=== PATIENT | male | born 1950 | race African-American/Black ===

== ENCOUNTER 2024-05-15 12:36 | Inpatient (IN) | payer BC, MEDICAID, MEDICARE ==
[~2024-05-15] VITALS: Ht 172.7 cm; Wt 98.0 kg
[2024-05-15 13:36] LABS: BASOPHILS % 0.3 % (0.0-2.0); EOSINOPHILS % 0.3 % (0.0-5.0); HEMATOCRIT. 47.5 % (42.0-52.0); LYMPHOCYTES % 14.6 % (20.0-50.0); MEAN CORPUSCULAR HEMOGLOBIN 28.5 pg (28.0-32.0); MEAN CORPUSCULAR HGB CONC 31.6 g/dL (31.0-37.0); MEAN CORPUSCULAR VOLUME 90.3 fL (80.0-94.0); MEAN PLATELET VOLUME 11.4 fl (7.4-10.4); MONOCYTES % 10.5 % (2.0-8.0); NEUTROPHILS % 74.3 % (40.0-76.0); PLATELET 116 x1000/uL (130-400); RED BLOOD CELL COUNT 5.26 mill/uL (4.7-6.1); RED CELL DISTRIBUTION WIDTH 14.7 % (11.6-14.6)
[2024-05-15 13:40] LABS: CHLORIDE 106 mEq/L (98-107); POTASSIUM 3.9 mEq/L (3.5-5.1); SODIUM 134 mEq/L (136-145)
[2024-05-15 13:41] LABS: CALCIUM 9.3 mg/dL (8.7-10.4); CARBON DIOXIDE 19 mEq/L (21-32)
[2024-05-15 13:46] LABS: CREATININE 2.1 mg/dL (0.6-1.3); GLUCOSE 102 mg/dL (70-105); UREA NITROGEN BLOOD 14 mg/dL (9-23)
[2024-05-15 13:47] LABS: TROPONIN I HIGH SENSITIVITY 10 ng/L (3.0-53)
[2024-05-15 13:48] LABS: PHOSPHORUS 2.6 mg/dL (2.5-4.9)
[2024-05-15 15:43] LABS: PROTHROMBIN TIME 10.8 sec (9.6-11.0)
[2024-05-15] MEDS: SODIUM CHLORIDE 0.9% 1,000 ML IV ONE (23:37)
[2024-05-16 00:44] VITALS: BP 138/48; PULSE 87; RESP 20; TEMP 36.0844
[2024-05-16 00:49] VITALS: BP 138/48; PULSE 87; RESP 20; TEMP 36.05844; O2SAT 98
[2024-05-16] MEDS: DEXT 5%/0.9% NACL 1,000 ML IV SCH (02:34)
[2024-05-16] MEDS: HYDROCODONE/ACETAMINOPHEN 5/325MG TABLET PO PRN (02:35)
[2024-05-16 04:00] VITALS: BP 135/81; PULSE 76; RESP 20; TEMP 36.114; O2SAT 99
[2024-05-16] MEDS: PANTOPRAZOLE 40MG DR TABLET PO SCH (07:54)
[2024-05-16 08:00] VITALS: BP 145/76; PULSE 70; RESP 19; TEMP 36.44736; O2SAT 98
[2024-05-16] MEDS: ASPIRIN 81MG EC TABLET PO SCH (08:33)
[2024-05-16] MEDS: ENOXAPARIN 30MG/0.3ML SYR SUBCUT SCH (08:33)
[2024-05-16 12:00] VITALS: BP 119/77; PULSE 72; RESP 19; TEMP 37.05852; O2SAT 98
[2024-05-16 13:44] LABS: CLARITY URINE CLOUDY (CLEAR); COLOR URINE DARK YELLOW (YELLOW); GLUCOSE URINE NEGATIVE (NEGATIVE); KETONES URINE 1+ (NEGATIVE); LEUKOCYTE ESTERASE URINE TRACE (NEGATIVE); NITRITE URINE NEGATIVE (NEGATIVE); OCCULT BLOOD URINE 3+ (NEGATIVE); PROTEIN URINE 2+ (NEGATIVE); SPECIFIC GRAVITY URINE 1.024 (1.005-1.030)
[2024-05-16 14:29] LABS: SQUAMOUS EPITHELIAL CELL URINE RARE /lpf (RARE/1+)
[2024-05-16 14:30] LABS: BACTERIA URINE 2+; RBC URINE TNTC /hpf (0-2)
[2024-05-16] MEDS ORDERED: NALOXONE HCL 0.4MG/ML VIAL IV PRN (15:15)
[2024-05-16 18:35] LABS: BASOPHILS % 0.6 % (0.0-2.0); EOSINOPHILS % 1.7 % (0.0-5.0); HEMOGLOBIN. 13.5 g/dL (14.0-18.0); LYMPHOCYTES % 29.4 % (20.0-50.0); MEAN CORPUSCULAR HEMOGLOBIN 29.3 pg (28.0-32.0); MEAN CORPUSCULAR HGB CONC 32.8 g/dL (31.0-37.0); MEAN CORPUSCULAR VOLUME 89.4 fL (80.0-94.0); MEAN PLATELET VOLUME 11.8 fl (7.4-10.4); MONOCYTES % 11.2 % (2.0-8.0); NEUTROPHILS % 57.1 % (40.0-76.0); PLATELET 124 x1000/uL (130-400); RED BLOOD CELL COUNT 4.59 mill/uL (4.7-6.1); RED CELL DISTRIBUTION WIDTH 14.7 % (11.6-14.6); WHITE BLOOD COUNT 4.7 x1000/uL (4.5-11.0)
[2024-05-16] MEDS: DEXAMETHASONE 4MG/ML 1ML VIAL IV SCH (18:50)
[2024-05-16] MEDS ORDERED: CEFTRIAXONE 1,000 MG in DEXTROSE 5% WATER 50 ML IV SCH (19:45)
[2024-05-16 20:00] VITALS: BP 154/81; PULSE 84; RESP 20; TEMP 36.61404; O2SAT 96
[2024-05-16 20:51] LABS: CHLORIDE 109 mEq/L (98-107); SODIUM 135 mEq/L (136-145)
[2024-05-16 20:52] LABS: CALCIUM 8.8 mg/dL (8.7-10.4); CARBON DIOXIDE 21 mEq/L (21-32)
[2024-05-16 20:57] LABS: GLUCOSE 114 mg/dL (70-105); UREA NITROGEN BLOOD 12 mg/dL (9-23)
[2024-05-16 21:06] LABS: CREATININE 1.4 mg/dL (0.6-1.3)
[2024-05-17] VITALS (41 sets, daily range): BP systolic 97–159; BP diastolic 57–102; PULSE 58–98; RESP 8–20; TEMP 34.4472–36.72516; O2SAT 93–100
[2024-05-17 09:19] LABS: BASOPHILS % 0.2 % (0.0-2.0); EOSINOPHILS % 0.1 % (0.0-5.0); HEMATOCRIT. 44.5 % (42.0-52.0); HEMOGLOBIN. 14.4 g/dL (14.0-18.0); LYMPHOCYTES % 11.9 % (20.0-50.0); MEAN CORPUSCULAR HEMOGLOBIN 28.9 pg (28.0-32.0); MEAN CORPUSCULAR HGB CONC 32.4 g/dL (31.0-37.0); MEAN CORPUSCULAR VOLUME 89.2 fL (80.0-94.0); MEAN PLATELET VOLUME 11.9 fl (7.4-10.4); MONOCYTES % 5.9 % (2.0-8.0); NEUTROPHILS % 81.9 % (40.0-76.0); PLATELET 142 x1000/uL (130-400); RED BLOOD CELL COUNT 4.98 mill/uL (4.7-6.1); RED CELL DISTRIBUTION WIDTH 14.4 % (11.6-14.6); WHITE BLOOD COUNT 6.9 x1000/uL (4.5-11.0)
[2024-05-17 09:38] LABS: CHLORIDE 109 mEq/L (98-107); POTASSIUM 4.6 mEq/L (3.5-5.1); SODIUM 137 mEq/L (136-145)
[2024-05-17 09:39] LABS: CALCIUM 9.2 mg/dL (8.7-10.4); CARBON DIOXIDE 21 mEq/L (21-32)
[2024-05-17 09:44] LABS: CREATININE 1.7 mg/dL (0.6-1.3); GLUCOSE 128 mg/dL (70-105); PROTEIN TOTAL 6.8 g/dL (6.0-8.3); UREA NITROGEN BLOOD 9 mg/dL (9-23)
[2024-05-17 09:46] LABS: ALANINE AMINOTRANSFERASE 28 IU/L (10-49); ALBUMIN 3.7 g/dL (3.2-4.8); ASPARTATE AMINOTRANSFERASE 27 IU/L (<34); BILIRUBIN DIRECT 0.2 mg/dL (<=3.0); BILIRUBIN TOTAL 0.4 mg/dL (0.1-1.0); CREATINE KINASE 64 IU/L (46-171); PHOSPHORUS 2.6 mg/dL (2.5-4.9)
[2024-05-17] MEDS ORDERED: ROCURONIUM BROMIDE 10MG/ML VIAL 5ML IV ONE (09:48)
[2024-05-17] MEDS ORDERED: FENTANYL CITRATE/PF 50MCG/ML 2ML VIAL ONE (09:48)
[2024-05-17] MEDS ORDERED: PROPOFOL 200MG/20ML VIAL IV ONE (09:49)
[2024-05-17] MEDS ORDERED: THROMBIN (BOVINE) 5000 UNITS/VIAL TOP ONE (09:51)
[2024-05-17] MEDS ORDERED: LIDOCAINE HCL/EPINEPHRINE 1%-EPI 1:100,000 20ML VIAL ONE (09:51)
[2024-05-17] MEDS ORDERED: GENTAMICIN SULF 40MG/ML 2ML VIAL ONE (09:51)
[2024-05-17] MEDS ORDERED: HYDROMORPHONE HCL/PF 1MG/ML INJ IV PRN (12:00)
[2024-05-17] MEDS ORDERED: ONDANSETRON HCL 4MG/2ML INJ IV PRN (12:00)
[2024-05-17] MEDS ORDERED: SUGAMMADEX SODIUM 200MG/2ML VIAL IV ONE (12:20)
[2024-05-17] MEDS: MORPHINE SULFATE 4 MG/ML INJ (FOR IV/IM USE) IV PRN (13:26)
[2024-05-17] MEDS: DEXT 5%/LACTATED RINGERS 1,000 ML IV SCH (13:26)
[2024-05-17] MEDS: NICARDIPINE 100 MG in SODIUM CHLORIDE 0.9% 60 ML IV PRN (13:37)
[2024-05-17] MEDS ORDERED: CEFAZOLIN SODIUM 1000MG/VIAL IV SCH (14:00)
[2024-05-17 14:10] LABS: CREATININE URINE RANDOM 40.1 mg/dL
[2024-05-17] MEDS: CLINDAMYCIN 600MG PREMIX 50 ML IV SCH (15:12)
[2024-05-18] VITALS (95 sets, daily range): BP systolic 106–155; BP diastolic 66–126; PULSE 67–98; RESP 9–29; TEMP 35.72508–36.72516; O2SAT 93–99
[2024-05-18 04:30] LABS: HEMATOCRIT. 38.6 % (42.0-52.0); MEAN CORPUSCULAR HEMOGLOBIN 29.7 pg (28.0-32.0); MEAN CORPUSCULAR HGB CONC 33.8 g/dL (31.0-37.0); MEAN PLATELET VOLUME 11.4 fl (7.4-10.4); PLATELET 132 x1000/uL (130-400); RED BLOOD CELL COUNT 4.38 mill/uL (4.7-6.1); RED CELL DISTRIBUTION WIDTH 14.6 % (11.6-14.6); WHITE BLOOD COUNT 10.9 x1000/uL (4.5-11.0)
[2024-05-18 04:31] LABS: CHLORIDE 110 mEq/L (98-107); POTASSIUM 4.5 mEq/L (3.5-5.1); SODIUM 138 mEq/L (136-145)
[2024-05-18 04:33] LABS: CALCIUM 8.5 mg/dL (8.7-10.4); CARBON DIOXIDE 21 mEq/L (21-32)
[2024-05-18 04:38] LABS: CREATININE 1.2 mg/dL (0.6-1.3); GLUCOSE 149 mg/dL (70-105)
[2024-05-18 04:39] LABS: ALANINE AMINOTRANSFERASE 26 IU/L (10-49); UREA NITROGEN BLOOD 10 mg/dL (9-23)
[2024-05-18 04:40] LABS: ALBUMIN 3.4 g/dL (3.2-4.8); ASPARTATE AMINOTRANSFERASE 31 IU/L (<34)
[2024-05-18 04:41] LABS: BILIRUBIN DIRECT 0.2 mg/dL (<=3.0); BILIRUBIN TOTAL 0.4 mg/dL (0.1-1.0); PHOSPHORUS 2.6 mg/dL (2.5-4.9)
[2024-05-18 05:25] LABS: DIFFERENTIAL COMMENT 1
[2024-05-18 16:02] LABS: PLATELET ESTIMATE NORMAL
[2024-05-19] VITALS (52 sets, daily range): BP systolic 110–153; BP diastolic 64–87; PULSE 64–84; RESP 9–31; TEMP 36.3918–36.50292; O2SAT 94–100
[2024-05-19 05:35] LABS: BASOPHILS % 0.2 % (0.0-2.0); EOSINOPHILS % 0.1 % (0.0-5.0); HEMOGLOBIN. 13.6 g/dL (14.0-18.0); LYMPHOCYTES % 9.4 % (20.0-50.0); MEAN CORPUSCULAR HEMOGLOBIN 29.2 pg (28.0-32.0); MEAN CORPUSCULAR HGB CONC 31.5 g/dL (31.0-37.0); MEAN CORPUSCULAR VOLUME 92.7 fL (80.0-94.0); MEAN PLATELET VOLUME 10.8 fl (7.4-10.4); MONOCYTES % 6.9 % (2.0-8.0); NEUTROPHILS % 83.4 % (40.0-76.0); PLATELET 71 x1000/uL (130-400); RED BLOOD CELL COUNT 4.64 mill/uL (4.7-6.1); RED CELL DISTRIBUTION WIDTH 15.4 % (11.6-14.6); WHITE BLOOD COUNT 10.3 x1000/uL (4.5-11.0)
[2024-05-19 05:44] LABS: CARBON DIOXIDE 24 mEq/L (21-32); CHLORIDE 107 mEq/L (98-107); POTASSIUM 4.8 mEq/L (3.5-5.1); SODIUM 136 mEq/L (136-145)
[2024-05-19 05:46] LABS: CALCIUM 8.3 mg/dL (8.7-10.4)
[2024-05-19 05:50] LABS: CREATININE 1.2 mg/dL (0.6-1.3); GLUCOSE 119 mg/dL (70-105)
[2024-05-19 05:51] LABS: UREA NITROGEN BLOOD 10 mg/dL (9-23)
[2024-05-19 05:53] LABS: PHOSPHORUS 2.6 mg/dL (2.5-4.9)
[2024-05-19] MEDS: MAGNESIUM 2 G PREMIX 50 ML IV NR (10:19)
[2024-05-20] VITALS (10 sets, daily range): BP systolic 124–175; BP diastolic 73–100; PULSE 74–100; RESP 16–20; TEMP 36.00288–37.00296; O2SAT 96–100
[2024-05-20] MEDS: IPRATROPIUM/ALBUTEROL 0.5-3(2.5)MG/3ML NEB HHN SCH
[2024-05-20 07:20] LABS: BASOPHILS % 0.2 % (0.0-2.0); EOSINOPHILS % 0.4 % (0.0-5.0); HEMATOCRIT. 40.5 % (42.0-52.0); HEMOGLOBIN. 13.1 g/dL (14.0-18.0); MEAN CORPUSCULAR HEMOGLOBIN 28.7 pg (28.0-32.0); MEAN CORPUSCULAR HGB CONC 32.4 g/dL (31.0-37.0); MEAN CORPUSCULAR VOLUME 88.6 fL (80.0-94.0); MEAN PLATELET VOLUME 11.1 fl (7.4-10.4); MONOCYTES % 6.7 % (2.0-8.0); NEUTROPHILS % 73.7 % (40.0-76.0); PLATELET 133 x1000/uL (130-400); RED BLOOD CELL COUNT 4.57 mill/uL (4.7-6.1); RED CELL DISTRIBUTION WIDTH 14.4 % (11.6-14.6); WHITE BLOOD COUNT 6.9 x1000/uL (4.5-11.0)
[2024-05-20 07:24] LABS: CHLORIDE 107 mEq/L (98-107); POTASSIUM 3.9 mEq/L (3.5-5.1); SODIUM 135 mEq/L (136-145)
[2024-05-20 07:25] LABS: CARBON DIOXIDE 23 mEq/L (21-32)
[2024-05-20 07:26] LABS: CALCIUM 8.4 mg/dL (8.7-10.4)
[2024-05-20 07:29] LABS: UREA NITROGEN BLOOD 13 mg/dL (9-23)
[2024-05-20 07:30] LABS: CREATININE 0.9 mg/dL (0.6-1.3); GLUCOSE 101 mg/dL (70-105)
[2024-05-20 07:32] LABS: ALANINE AMINOTRANSFERASE 32 IU/L (10-49); ALBUMIN 3.2 g/dL (3.2-4.8); ASPARTATE AMINOTRANSFERASE 28 IU/L (<34)
[2024-05-20 07:33] LABS: BILIRUBIN DIRECT 0.2 mg/dL (<=3.0); BILIRUBIN TOTAL 0.4 mg/dL (0.1-1.0); PHOSPHORUS 2.2 mg/dL (2.5-4.9)
[2024-05-20] MEDS: MAGNESIUM 2 G PREMIX 50 ML IV NR (10:15)
[2024-05-20] MEDS: SODIUM PHOSPHATE 15 MMOL in DEXT 5% WATER 245 ML IV NR (11:09)
[2024-05-20] MEDS: LOSARTAN 50 MG TABLET PO SCH (18:34)
[2024-05-20] MEDS: CLONIDINE 0.1MG TABLET PO PRN (18:35)
[2024-05-21] VITALS (10 sets, daily range): BP systolic 108–145; BP diastolic 60–88; PULSE 7–103; RESP 16–22; TEMP 36.3918–37.00296; O2SAT 94–99
[2024-05-21 10:19] LABS: BASOPHILS % 0.2 % (0.0-2.0); EOSINOPHILS % 0.6 % (0.0-5.0); HEMATOCRIT. 42.9 % (42.0-52.0); HEMOGLOBIN. 13.8 g/dL (14.0-18.0); LYMPHOCYTES % 14.6 % (20.0-50.0); MEAN CORPUSCULAR HEMOGLOBIN 28.8 pg (28.0-32.0); MEAN CORPUSCULAR HGB CONC 32.2 g/dL (31.0-37.0); MEAN CORPUSCULAR VOLUME 89.4 fL (80.0-94.0); MEAN PLATELET VOLUME 10.4 fl (7.4-10.4); MONOCYTES % 6.8 % (2.0-8.0); NEUTROPHILS % 77.8 % (40.0-76.0); PLATELET 130 x1000/uL (130-400); RED CELL DISTRIBUTION WIDTH 15.1 % (11.6-14.6); WHITE BLOOD COUNT 9.1 x1000/uL (4.5-11.0)
[2024-05-21 10:39] LABS: CARBON DIOXIDE 25 mEq/L (21-32); CHLORIDE 102 mEq/L (98-107); POTASSIUM 4.7 mEq/L (3.5-5.1); SODIUM 133 mEq/L (136-145)
[2024-05-21 10:40] LABS: CALCIUM 8.6 mg/dL (8.7-10.4)
[2024-05-21 10:45] LABS: CREATININE 1.2 mg/dL (0.6-1.3); GLUCOSE 155 mg/dL (70-105)
[2024-05-21 10:46] LABS: UREA NITROGEN BLOOD 14 mg/dL (9-23)
[2024-05-21 10:48] LABS: PHOSPHORUS 3.1 mg/dL (2.5-4.9)
[2024-05-22] VITALS (10 sets, daily range): BP systolic 93–157; BP diastolic 54–82; PULSE 64–106; RESP 18–22; TEMP 36.3918–38.22528; O2SAT 93–98
[2024-05-22 05:38] LABS: CARBON DIOXIDE 23 mEq/L (21-32); CHLORIDE 105 mEq/L (98-107); POTASSIUM 4.1 mEq/L (3.5-5.1); SODIUM 133 mEq/L (136-145)
[2024-05-22 05:39] LABS: CALCIUM 8.3 mg/dL (8.7-10.4)
[2024-05-22 05:41] LABS: BASOPHILS % 0.1 % (0.0-2.0); EOSINOPHILS % 0.4 % (0.0-5.0); HEMATOCRIT. 40.7 % (42.0-52.0); HEMOGLOBIN. 13.7 g/dL (14.0-18.0); MEAN CORPUSCULAR HEMOGLOBIN 29.9 pg (28.0-32.0); MEAN CORPUSCULAR HGB CONC 33.8 g/dL (31.0-37.0); MEAN CORPUSCULAR VOLUME 88.6 fL (80.0-94.0); MEAN PLATELET VOLUME 10.1 fl (7.4-10.4); MONOCYTES % 6.5 % (2.0-8.0); PLATELET 130 x1000/uL (130-400); RED BLOOD CELL COUNT 4.59 mill/uL (4.7-6.1); RED CELL DISTRIBUTION WIDTH 15.2 % (11.6-14.6); WHITE BLOOD COUNT 8.9 x1000/uL (4.5-11.0)
[2024-05-22 05:44] LABS: CREATININE 1.1 mg/dL (0.6-1.3); GLUCOSE 134 mg/dL (70-105); UREA NITROGEN BLOOD 14 mg/dL (9-23)
[2024-05-22 05:46] LABS: PHOSPHORUS 2.9 mg/dL (2.5-4.9)
[2024-05-22] MEDS ORDERED: NALOXONE HCL 0.4MG/ML VIAL IV PRN (15:45)
[2024-05-22] MEDS: ACETAMINOPHEN 325MG TABLET PO PRN (15:49)
[2024-05-22 16:38] LABS: CLARITY URINE CLOUDY (CLEAR); COLOR URINE ORANGE (YELLOW); GLUCOSE URINE NEGATIVE (NEGATIVE); KETONES URINE NEGATIVE (NEGATIVE); LEUKOCYTE ESTERASE URINE 1+ (NEGATIVE); NITRITE URINE NEGATIVE (NEGATIVE); OCCULT BLOOD URINE 3+ (NEGATIVE); PROTEIN URINE 2+ (NEGATIVE)
[2024-05-22] MEDS: HYDROCODONE/ACETAMINOPHEN 5/325MG TABLET PO PRN (16:39)
[2024-05-22 17:04] LABS: BACTERIA URINE TRACE; RBC URINE TNTC /hpf (0-2); SQUAMOUS EPITHELIAL CELL URINE FEW /lpf (RARE/1+)
[2024-05-22] MEDS: LEVOFLOXACIN 750MG PREMIX 150 ML IV SCH (21:23)
[2024-05-22 23:07] LABS: BG BASE EXCESS -2.2 mmol/L (-2.0-3.0); BG CARBOXYHEMOGLOBIN 0.8 % (0.5-1.5); BG DEOXYHEMOGLOBIN 2.2 % (0.0-5.0); BG FRACTION INSPIRED OXYGEN 28; BG HCO3 ACT 21.2 mmol/L (21.0-28.0); BG METHEMOGLOBIN 0.3 % (0.5-1.5); BG OXYGEN SATURATION 97.8 % (94.0-98.0); BG OXYHEMOGLOBIN 96.7 % (94.0-98.0); BG PCO2 32.5 mmHg (35.0-48.0); BG PH 7.432 (7.350-7.450); BG PO2 100.9 mmHg (83.0-108.0); BG SAMPLE SITE LEFT RADIAL; BG TOTAL HEMOGLOBIN 13.7 g/dL (13.5-17.5); BG VENT MODE NASAL CANNULA
[2024-05-23] VITALS (9 sets, daily range): BP systolic 108–122; BP diastolic 60–79; PULSE 88–94; RESP 16–21; TEMP 36.22512–36.78072; O2SAT 95–100
[2024-05-23] MEDS: VANCOMYCIN 1.5GM/250ML IV NR (03:57)
[2024-05-23] MEDS: AZTREONAM 1 G in DEXTROSE 5% WATER 50 ML IV SCH (03:57)
[2024-05-23 06:57] LABS: CALCIUM 8.3 mg/dL (8.7-10.4); CARBON DIOXIDE 22 mEq/L (21-32); CHLORIDE 104 mEq/L (98-107); POTASSIUM 3.9 mEq/L (3.5-5.1); SODIUM 135 mEq/L (136-145)
[2024-05-23 06:58] LABS: HEMATOCRIT. 36.7 % (42.0-52.0); MEAN CORPUSCULAR HEMOGLOBIN 29.2 pg (28.0-32.0); MEAN CORPUSCULAR HGB CONC 32.6 g/dL (31.0-37.0); MEAN CORPUSCULAR VOLUME 89.4 fL (80.0-94.0); MEAN PLATELET VOLUME 10.4 fl (7.4-10.4); PLATELET 135 x1000/uL (130-400); RED CELL DISTRIBUTION WIDTH 14.8 % (11.6-14.6); WHITE BLOOD COUNT 14.4 x1000/uL (4.5-11.0)
[2024-05-23 07:03] LABS: CREATININE 1.4 mg/dL (0.6-1.3); GLUCOSE 119 mg/dL (70-105); UREA NITROGEN BLOOD 23 mg/dL (9-23)
[2024-05-23 07:05] LABS: PHOSPHORUS 3.2 mg/dL (2.5-4.9)
[2024-05-23 07:32] LABS: DIFFERENTIAL COMMENT 1
[2024-05-23 15:37] LABS: PLATELET ESTIMATE NORMAL
[2024-05-23] MEDS: SODIUM CHLORIDE 0.9% 1,000 ML IV SCH (16:55)
[2024-05-23] MEDS ORDERED: VANCOMYCIN 750MG/150ML (BAXTER) IV SCH (18:00)
[2024-05-24] VITALS (8 sets, daily range): BP systolic 110–146; BP diastolic 68–77; PULSE 76–108; RESP 16–22; TEMP 36.22512–36.83628; O2SAT 95–100
[2024-05-24] MEDS: AZTREONAM 2GM in DEXTROSE 5% WATER 100ML IV SCH (03:30)
[2024-05-24] MEDS: VANCOMYCIN 1.25GM PMX (XELLIA) 250 ML IV SCH (03:31)
[2024-05-24 08:01] LABS: HEMATOCRIT. 35.9 % (42.0-52.0); HEMOGLOBIN. 11.8 g/dL (14.0-18.0); MEAN CORPUSCULAR HEMOGLOBIN 29.3 pg (28.0-32.0); MEAN CORPUSCULAR HGB CONC 32.9 g/dL (31.0-37.0); PLATELET 155 x1000/uL (130-400); RED BLOOD CELL COUNT 4.04 mill/uL (4.7-6.1); RED CELL DISTRIBUTION WIDTH 15.2 % (11.6-14.6); WHITE BLOOD COUNT 13.7 x1000/uL (4.5-11.0)
[2024-05-24 08:03] LABS: CHLORIDE 105 mEq/L (98-107); SODIUM 135 mEq/L (136-145)
[2024-05-24 08:05] LABS: CARBON DIOXIDE 23 mEq/L (21-32)
[2024-05-24 08:06] LABS: CALCIUM 8.6 mg/dL (8.7-10.4)
[2024-05-24 08:10] LABS: CREATININE 1.1 mg/dL (0.6-1.3); GLUCOSE 119 mg/dL (70-105)
[2024-05-24 08:11] LABS: ALANINE AMINOTRANSFERASE 23 IU/L (10-49); UREA NITROGEN BLOOD 21 mg/dL (9-23)
[2024-05-24 08:12] LABS: ALBUMIN 3.1 g/dL (3.2-4.8); ASPARTATE AMINOTRANSFERASE 20 IU/L (<34)
[2024-05-24 08:13] LABS: BILIRUBIN DIRECT 0.2 mg/dL (<=3.0); BILIRUBIN TOTAL 0.5 mg/dL (0.1-1.0)
[2024-05-24 08:20] LABS: DIFFERENTIAL COMMENT 1
[2024-05-25] VITALS: BP 157/85; PULSE 103; RESP 16; TEMP 36.44736; O2SAT 95
[2024-05-25 05:08] LABS: PLATELET ESTIMATE NORMAL
[2024-05-25] MEDS: VANCOMYCIN 1.25GM PMX (XELLIA) 250 ML IV SCH (05:38)
[2024-05-25 06:53] LABS: CARBON DIOXIDE 26 mEq/L (21-32); CHLORIDE 107 mEq/L (98-107); SODIUM 137 mEq/L (136-145)
[2024-05-25 06:54] LABS: CALCIUM 8.4 mg/dL (8.7-10.4)
[2024-05-25 06:59] LABS: GLUCOSE 126 mg/dL (70-105); UREA NITROGEN BLOOD 21 mg/dL (9-23)
[2024-05-25 07:00] LABS: ALANINE AMINOTRANSFERASE 36 IU/L (10-49); VANCOMYCIN TROUGH 6.3 ug/mL (5.0-10.0)
[2024-05-25 07:01] LABS: ALBUMIN 3.1 g/dL (3.2-4.8); ASPARTATE AMINOTRANSFERASE 37 IU/L (<34); BILIRUBIN DIRECT 0.2 mg/dL (<=3.0); BILIRUBIN TOTAL 0.5 mg/dL (0.1-1.0); PHOSPHORUS 1.9 mg/dL (2.5-4.9)
[2024-05-25 07:12] LABS: BASOPHILS % 0.2 % (0.0-2.0); EOSINOPHILS % 0.7 % (0.0-5.0); HEMATOCRIT. 34.6 % (42.0-52.0); HEMOGLOBIN. 11.5 g/dL (14.0-18.0); LYMPHOCYTES % 8.9 % (20.0-50.0); MEAN CORPUSCULAR HEMOGLOBIN 29.6 pg (28.0-32.0); MEAN CORPUSCULAR HGB CONC 33.1 g/dL (31.0-37.0); MEAN CORPUSCULAR VOLUME 89.4 fL (80.0-94.0); MEAN PLATELET VOLUME 9.6 fl (7.4-10.4); MONOCYTES % 5.6 % (2.0-8.0); NEUTROPHILS % 84.6 % (40.0-76.0); PLATELET 155 x1000/uL (130-400); RED BLOOD CELL COUNT 3.87 mill/uL (4.7-6.1); RED CELL DISTRIBUTION WIDTH 15.1 % (11.6-14.6); WHITE BLOOD COUNT 12.6 x1000/uL (4.5-11.0)
[2024-05-25 08:00] VITALS: BP 124/82; PULSE 90; RESP 18; TEMP 35.8362; O2SAT 98
[2024-05-25 12:00] VITALS: BP 143/90; PULSE 92; RESP 18; TEMP 36.89184; O2SAT 98
[2024-05-25] MEDS: METOPROLOL TARTRATE 25MG TABLET PO SCH (12:35)
[2024-05-25 16:00] VITALS: BP 126/84; PULSE 85; RESP 18; TEMP 36.72516; O2SAT 99
[2024-05-25 16:37] LABS: CLARITY URINE CLOUDY (CLEAR); COLOR URINE YELLOW (YELLOW); GLUCOSE URINE NEGATIVE (NEGATIVE); KETONES URINE TRACE (NEGATIVE); LEUKOCYTE ESTERASE URINE NEGATIVE (NEGATIVE); NITRITE URINE NEGATIVE (NEGATIVE); OCCULT BLOOD URINE 2+ (NEGATIVE); PH URINE 5.5 (4.5-8.0); PROTEIN URINE 1+ (NEGATIVE); SPECIFIC GRAVITY URINE 1.033 (1.005-1.030)
[2024-05-25 17:05] LABS: BACTERIA URINE 2+; SQUAMOUS EPITHELIAL CELL URINE 1+ /lpf (RARE/1+)
[2024-05-25 17:06] LABS: RBC URINE 15-25 /hpf (0-2); WBC URINE 0-2 /hpf (0-2)
[2024-05-25] MEDS: SODIUM PHOSPHATE 15 MMOL in DEXT 5% WATER 245 ML IV NR (17:06)
[2024-05-25 20:00] VITALS: BP 107/70; PULSE 82; RESP 18; TEMP 36.55848; O2SAT 96
[2024-05-26] VITALS (8 sets, daily range): BP systolic 111–148; BP diastolic 62–90; PULSE 70–99; RESP 18–20; TEMP 36.22512–37.2252; O2SAT 96–98
[2024-05-26] MEDS: VANCOMYCIN 1.25GM PMX (XELLIA) 250 ML IV SCH (08:24)
[2024-05-26] MEDS: FAMOTIDINE 20MG TABLET PO SCH (08:25)
[2024-05-26 10:50] LABS: BASOPHILS % 0.2 % (0.0-2.0); EOSINOPHILS % 0.5 % (0.0-5.0); HEMATOCRIT. 35.4 % (42.0-52.0); HEMOGLOBIN. 11.3 g/dL (14.0-18.0); LYMPHOCYTES % 7.2 % (20.0-50.0); MEAN CORPUSCULAR HEMOGLOBIN 28.7 pg (28.0-32.0); MEAN CORPUSCULAR VOLUME 89.7 fL (80.0-94.0); MEAN PLATELET VOLUME 9.4 fl (7.4-10.4); MONOCYTES % 5.1 % (2.0-8.0); PLATELET 187 x1000/uL (130-400); RED BLOOD CELL COUNT 3.94 mill/uL (4.7-6.1); RED CELL DISTRIBUTION WIDTH 15.4 % (11.6-14.6); WHITE BLOOD COUNT 12.1 x1000/uL (4.5-11.0)
[2024-05-26 11:00] LABS: CHLORIDE 105 mEq/L (98-107); POTASSIUM 3.4 mEq/L (3.5-5.1); SODIUM 135 mEq/L (136-145)
[2024-05-26 11:01] LABS: CALCIUM 8.3 mg/dL (8.7-10.4); CARBON DIOXIDE 23 mEq/L (21-32)
[2024-05-26 11:06] LABS: GLUCOSE 154 mg/dL (70-105); UREA NITROGEN BLOOD 24 mg/dL (9-23)
[2024-05-26 11:09] LABS: PHOSPHORUS 1.9 mg/dL (2.5-4.9)
[2024-05-26] MEDS: POTASSIUM-SODIUM PHOSPHATE POWDER PACKET PO NR (12:27)
[2024-05-26] MEDS: IPRATROPIUM/ALBUTEROL 0.5-3(2.5)MG/3ML NEB HHN SCH (15:14)
[2024-05-26] MEDS ORDERED: IPRATROPIUM/ALBUTEROL 0.5-3(2.5)MG/3ML NEB HHN SCH (18:00)
[2024-05-27] VITALS (7 sets, daily range): BP systolic 108–154; BP diastolic 66–83; PULSE 70–90; RESP 18–20; TEMP 36.3918–37.00296; O2SAT 96–99
[2024-05-27 06:28] LABS: CALCIUM 8.8 mg/dL (8.7-10.4); CARBON DIOXIDE 26 mEq/L (21-32); CHLORIDE 106 mEq/L (98-107); POTASSIUM 3.5 mEq/L (3.5-5.1); SODIUM 137 mEq/L (136-145)
[2024-05-27 06:33] LABS: GLUCOSE 115 mg/dL (70-105)
[2024-05-27 06:34] LABS: UREA NITROGEN BLOOD 22 mg/dL (9-23)
[2024-05-27 06:36] LABS: PHOSPHORUS 2.3 mg/dL (2.5-4.9)
[2024-05-27 08:14] LABS: HEMATOCRIT. 35.3 % (42.0-52.0); HEMOGLOBIN. 11.4 g/dL (14.0-18.0); MEAN CORPUSCULAR HGB CONC 32.3 g/dL (31.0-37.0); MEAN CORPUSCULAR VOLUME 89.7 fL (80.0-94.0); MEAN PLATELET VOLUME 9.5 fl (7.4-10.4); PLATELET 186 x1000/uL (130-400); RED BLOOD CELL COUNT 3.94 mill/uL (4.7-6.1); RED CELL DISTRIBUTION WIDTH 15.2 % (11.6-14.6)
[2024-05-27 08:34] LABS: DIFFERENTIAL COMMENT 1
[2024-05-27 21:03] LABS: PLATELET ESTIMATE NORMAL
== END 2024-05-27 19:30 | DRG 471 ==
LOC: ER 12:36 → 6EST 17:40 → EDBEDREQTM 17:48 → EDBEDREQ 17:48 → MICUNO 05-17 12:55 → 8WST 05-19 18:27
PROVIDERS: ADMIT Internal Medicine; ATTEND Internal Medicine
PROC: 0RG2071 Fusion of 2 or more Cervical Vertebral Joints with Autologous Tissue Substitute, Posterior Approach, Posterior Column, Open Approach (ICD-10-PCS; principal; 2024-05-19)
PROC: 00NW0ZZ Release Cervical Spinal Cord, Open Approach (ICD-10-PCS; 2024-05-19)
PROC: 4A11X4G Monitoring of Peripheral Nervous Electrical Activity, Intraoperative, External Approach (ICD-10-PCS; 2024-05-19)
DX: M48.02 Spinal stenosis, cervical region (principal); G82.50 Quadriplegia, unspecified; N17.9 Acute kidney failure, unspecified; N39.0 Urinary tract infection, site not specified; E87.1 Hypo-osmolality and hyponatremia; M50.01 Cervical disc disorder with myelopathy, high cervical region; R29.6 Repeated falls; R50.82 Postprocedural fever; Z20.822 Contact with and (suspected) exposure to COVID-19; M51.27 Other intervertebral disc displacement, lumbosacral region; M47.817 Spondylosis without myelopathy or radiculopathy, lumbosacral region; R33.9 Retention of urine, unspecified; M48.07 Spinal stenosis, lumbosacral region; D69.6 Thrombocytopenia, unspecified; Z86.73 Personal history of transient ischemic attack (TIA), and cerebral infarction without residual deficits; Z91.81 History of falling; Z82.49 Family history of ischemic heart disease and other diseases of the circulatory system; Z88.0 Allergy status to penicillin; Z88.8 Allergy status to other drugs, medicaments and biological substances; Z79.899 Other long term (current) drug therapy
CPT/HCPCS: 36415; 36600; 70551; 71045; 72040; 72141; 72148; 76000; 76770; 80048; 80076; 80202; 81003; 82375; 82550; 82570; 82805; 83605; 83735; 83880; 84100; 84145; 84156; 84484; 85025; 85379; 86850; 86900; 87426; 88304; 88311; 93005; 93306; 93880; 94640; 95925; 95926; 95928; 95929; 97110; 97116; 97162; 97530; 99285; J1100; J1580; J1650; J1956; J2270; J2704; J3010; J3370; J3475; J3490; J7030; J7042; J7050; J7060; J7121; L0172; C1713